=== PATIENT | male | born 1990 ===

== ENCOUNTER 2017-07-07 13:34 | Emergency (ER) | payer OTHER ==
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
[2017-07-07 15:56] VITALS: BP 139/84; PULSE 79; RESP 18; TEMP 97.6
[2017-07-09 10:34] VITALS: O2SAT 96
== END 2017-07-07 15:55 | disposition home or self-care (01) ==
LOC: C.ER 13:34
DX: M62.830 Muscle spasm of back (principal); V43.52XA Car driver injured in collision with other type car in traffic accident, initial encounter
CPT/HCPCS: 96372; 99284; J1885